=== PATIENT | female | born 1940 | race Caucasian/White ===

== ENCOUNTER → 2018-08-03 | Outpatient (CLI) | payer OTHER | END | disposition home or self-care (01) | LOC: RAH 14:35 | PROVIDERS: ATTEND Family Medicine | DX: Z13.6 Encounter for screening for cardiovascular disorders (principal) | CPT/HCPCS: 75571 ==

== ENCOUNTER → 2018-12-15 | Outpatient (CLI) | payer BC, OTHER | END | disposition home or self-care (01) | LOC: SHCH 09:38 | PROVIDERS: ATTEND Internal Medicine Cardiovascular Disease | DX: I10 Essential (primary) hypertension (principal); R53.1 Weakness | CPT/HCPCS: 93306; 93922 ==

== ENCOUNTER → 2019-01-09 | Outpatient (CLI) | payer BC, OTHER ==
[~2019-01-09] VITALS: Ht 172.7 cm; Wt 73.0 kg
[~2019-01-09] MED LIST: REGADENOSON 0.4 MG/5 ML PF SYG IVP SCH
== END | disposition home or self-care (01) ==
LOC: SHCH 08:29
PROVIDERS: ATTEND Internal Medicine Cardiovascular Disease
DX: R06.00 Dyspnea, unspecified (principal); I10 Essential (primary) hypertension
CPT/HCPCS: 78452; 93017; 96374; A9500 ×2; J2785

== ENCOUNTER → 2019-08-09 | Outpatient (CLI) | payer BC, OTHER ==
[~2019-08-09] VITALS: Ht 172.7 cm; Wt 74.8 kg
[2019-08-09 13:36] VITALS: BP 158/67
[2019-08-09 13:46] LABS: CREATININE 0.9 mg/dL (0.5-1.5); POTASSIUM 3.4 mmol/L (3.5-5.1)
[2019-08-09 13:59] LABS: BASOPHILS % (AUTO) 1.2 % (0.0-5.0); EOSINOPHILS % (AUTO) 3.8 % (0.0-8.0); HEMATOCRIT 39.6 % (36-48); LYMPHOCYTES % (AUTO) 33.1 % (21.0-51.0); MEAN CORPUSCULAR HGB CONC 32.3 g/dL (32.0-36.0); MONOCYTES % (AUTO) 13.6 % (3.0-13.0); NEUTROPHILS % (AUTO) 48.1 % (40.0-77.0); PLATELET COUNT (AUTO) 538 K/uL (130-400); RED BLOOD CELL COUNT(AUTO) 4.26 MIL/uL (4.00-5.50); RED CELL DISTRIBUTION WIDTH 14.6 % (11.0-15.5); WHITE BLOOD COUNT (AUTO) 8.3 K/uL (4.8-10.8)
[2019-08-09 14:14] LABS: INR 0.96 (0.85-1.15); PARTIAL THROMBOPLASTIN TIME 27.3 SEC (26.3-35.5); PROTHROMBIN TIME 10.4 SEC (9.6-11.6)
--- NOTE | 2019-08-14 08:48 | NUR ---
CANCELLED CALLED DR STEVENS OFFICE AND SPOKE TO ANJELICA Cloud NP FOR MD. PER ANJELICA PROCEDURES STARTING TOMORROW WILL BE CANCELLED.
== END | disposition home or self-care (01) ==
LOC: DAH 10:00 → EDSTATUS 11:00
PROVIDERS: ATTEND Orthopaedic Surgery
DX: Z01.818 Encounter for other preprocedural examination (principal); M16.12 Unilateral primary osteoarthritis, left hip; I51.7 Cardiomegaly
CPT/HCPCS: 36415; 80048; 85025; 85610; 85730; 87641; 93005; A6260

== ENCOUNTER 2019-09-20 12:00 | Inpatient (IN) | payer BC, OTHER ==
[~2019-09-20] VITALS: Ht 172.7 cm; Wt 74.2 kg
[2019-09-20 11:57] LABS: BASOPHILS % (AUTO) 1.3 % (0.0-5.0); EOSINOPHILS % (AUTO) 1.9 % (0.0-8.0); HEMATOCRIT 41.3 % (36-48); LYMPHOCYTES % (AUTO) 28.1 % (21.0-51.0); MEAN CORPUSCULAR HEMOGLOBIN 30.8 pg (27.0-33.0); MEAN CORPUSCULAR HGB CONC 32.7 g/dL (32.0-36.0); MEAN CORPUSCULAR VOLUME 94.1 fL (79-99); MONOCYTES % (AUTO) 11.3 % (3.0-13.0); PLATELET COUNT (AUTO) 614 K/uL (130-400); RED BLOOD CELL COUNT(AUTO) 4.39 MIL/uL (4.00-5.50); RED CELL DISTRIBUTION WIDTH 14.6 % (11.0-15.5); WHITE BLOOD COUNT (AUTO) 8.2 K/uL (4.8-10.8)
[2019-09-20 12:14] LABS: CREATININE 0.9 mg/dL (0.5-1.5)
[2019-09-20 12:16] LABS: INR 0.98 (0.85-1.15); PARTIAL THROMBOPLASTIN TIME 27.4 SEC (26.3-35.5); PROTHROMBIN TIME 10.6 SEC (9.6-11.6)
--- NOTE | 2019-09-22 10:20 | NUR ---
ekg abnormal ekg reported to dr. rsus. pending call back.
--- NOTE | 2019-09-22 11:19 | NUR ---
EKG PER DR. RONNIE GONSALVES TO PROCEED WITH PLANNED SURGERY ,NO NEW ORDERS ON ABNORMAL EKG REPORTED
[2019-09-25 09:14] VITALS: BP 144/74
[2019-09-25] MEDS ORDERED: AMLO-257 PO (11:37)
[2019-09-25] MEDS ORDERED: ATOR40TA71 PO (11:37)
[2019-09-25] MEDS ORDERED: LOSA1TAB54 PO (11:37)
[2019-09-25] MEDS ORDERED: ATEN100T PO (11:37)
[2019-09-26] VITALS (21 sets, daily range): BP systolic 102–146; BP diastolic 51–75
[2019-09-26] MEDS ORDERED: LACTATED RINGERS 1000ML 1,000 ML IV ONE (07:47)
[2019-09-26] MEDS ORDERED: MIDAZOLAM HCL 1 MG/ML 2ML VIAL ONE (09:41)
[2019-09-26] MEDS ORDERED: LIDOCAINE PF 2% 5ML ABBOJECT ONE (09:41)
[2019-09-26] MEDS ORDERED: PROPOFOL 10 MG/ML 20ML VIAL IV ONE ×2 (09:41→10:24)
[2019-09-26] MEDS ORDERED: FENTANYL CITRATE PF 50 MCG/1 ML 2ML VIAL ONE (09:42)
[2019-09-26] MEDS ORDERED: TRANEXAMIC ACID 1000MG/10ML ONE (09:52)
[2019-09-26] MEDS: CEFAZOLIN SODIUM 1 GM VIAL ONE ×2 (09:59→10:05)
[2019-09-26] MEDS ORDERED: EPHEDRINE SULFATE 50 MG/ML AMPULE ONE (10:04)
[2019-09-26] MEDS ORDERED: VANCOMYCIN HCL 1 GM VIAL ONE (11:01)
[2019-09-26] MEDS ORDERED: PROPOFOL 1000 MG/100 ML 0 ML IV ONE (11:25)
[2019-09-26] MEDS ORDERED: PROPOFOL 1000 MG/100 ML 100 ML IV ONE (11:26)
[2019-09-26] MEDS ORDERED: PHENYLEPHRINE HCL 10 MG/ML 1ML VIAL IV ONE (11:47)
[2019-09-26] MEDS ORDERED: SODIUM CHLORIDE 0.9% 10 ML VIAL ONE (11:47)
[2019-09-26] MEDS: SODIUM CHLORIDE 0.9% 1000ML 1,000 ML IV SCH (13:26)
[2019-09-26] MEDS ORDERED: ONDANSETRON HCL 4 MG/2 ML VIAL IVP PRN (13:30)
[2019-09-26] MEDS ORDERED: MORPHINE SULFATE 4 MG/1ML SYG IVP PRN (13:30)
[2019-09-26] MEDS: ACETAMINOPHEN EXTRA STRENGTH 500 MG TABLET PO SCH ×2 (13:30→22:33)
[2019-09-26] MEDS: OXYCODONE HCL 5 MG TAB PO PRN (14:53)
[2019-09-26] MEDS: CEFAZOLIN SODIUM 1 GM VIAL IVP SCH (19:09)
--- NOTE | 2019-09-26 19:09 | NUR ---
DC PLAN VISITED WITH PATIENT. PATIENT LIVES WITH DAUGHTER. INDEPENDENT ABLE TO PERFORM ADL'S. NO SERVICES OR DME'S. SAID SHE HAS A WALKER WITH TENNIS BALLS. ASKED IF DR. STEVENS HAD TALKED TO HER REGARDING NEEDING ANY EQUIPMENT OR HOME HEALTH. SHE SAID NO ESPECIALLY SINCE DAUGHTER WILL BE HELPING HER AT HOME. SAID FEELS SAFE TO RETURN HOME. Addendum: 09/26/19 at 1912 by DIEGO RAHMAN RN CM Amended: Links added.
[2019-09-26] MEDS: TRAMADOL HCL 50 MG TABLET PO PRN (22:24)
[2019-09-26] MEDS: ASPIRIN 81 MG EC TAB PO SCH (22:31)
[2019-09-26] MEDS: FAMOTIDINE 20MG TAB 20 MG TAB PO SCH (22:32)
[2019-09-26] MEDS: LOSARTAN/HYDROCHLOROTHIAZIDE 50-12.5MG TABLET PO SCH (22:32)
[2019-09-26] MEDS: AMLODIPINE BESYLATE 5 MG TAB PO SCH (22:32)
[2019-09-27] VITALS (7 sets, daily range): BP systolic 96–143; BP diastolic 50–69
[2019-09-27] MEDS: CEFAZOLIN SODIUM 1 GM VIAL IVP SCH (01:22)
[2019-09-27] MEDS: SODIUM CHLORIDE 0.9% 1000ML 1,000 ML IV SCH ×2 (01:34→09:41)
[2019-09-27 04:55] LABS: HEMATOCRIT 30.1 % (36-48); MEAN CORPUSCULAR HEMOGLOBIN 30.1 pg (27.0-33.0); MEAN CORPUSCULAR HGB CONC 32.9 g/dL (32.0-36.0); MEAN CORPUSCULAR VOLUME 91.5 fL (79-99); RED BLOOD CELL COUNT(AUTO) 3.29 MIL/uL (4.00-5.50); RED CELL DISTRIBUTION WIDTH 14.3 % (11.0-15.5); WHITE BLOOD COUNT (AUTO) 9.3 K/uL (4.8-10.8)
[2019-09-27 05:10] LABS: CREATININE 0.9 mg/dL (0.5-1.5)
[2019-09-27] MEDS ORDERED: POTASSIUM CHLORIDE 10% ELIXIR 20 MEQ/15 ML UDCUP PO PRN (06:00)
[2019-09-27] MEDS: ACETAMINOPHEN EXTRA STRENGTH 500 MG TABLET PO SCH ×3 (06:41→20:21)
[2019-09-27] MEDS: ASPIRIN 81 MG EC TAB PO SCH ×2 (08:39→20:13)
[2019-09-27] MEDS: POLYETHYLENE GLYCOL 3350 17 GM POWD.PACK PO SCH (08:39)
[2019-09-27] MEDS: ATENOLOL 50 MG TABLET PO SCH (08:39)
[2019-09-27] MEDS: FAMOTIDINE 20MG TAB 20 MG TAB PO SCH ×2 (08:39→20:13)
[2019-09-27] MEDS: POTASSIUM CHLORIDE 20 MEQ ERTAB PO PRN ×2 (08:41→20:15)
[2019-09-27] MEDS: OXYCODONE HCL 5 MG TAB PO PRN ×2 (08:41→21:21)
[2019-09-27] MEDS: POTASSIUM CHLORIDE 20MEQ/100ML 100 ML IV PRN (13:07)
[2019-09-27] MEDS: LIDOCAINE HCL-MPF 1% 2ML VIAL IV PRN (13:07)
[2019-09-27] MEDS: LOSARTAN/HYDROCHLOROTHIAZIDE 50-12.5MG TABLET PO SCH (20:13)
[2019-09-27] MEDS: AMLODIPINE BESYLATE 5 MG TAB PO SCH (20:13)
[2019-09-28 03:32] VITALS: BP 133/66
[2019-09-28] MEDS: TRAMADOL HCL 50 MG TABLET PO PRN (04:02)
[2019-09-28] MEDS: POTASSIUM CHLORIDE 20 MEQ ERTAB PO PRN ×3 (04:08→12:28)
[2019-09-28] MEDS: ACETAMINOPHEN EXTRA STRENGTH 500 MG TABLET PO SCH ×2 (04:26→14:10)
[2019-09-28 08:09] VITALS: BP 120/70
[2019-09-28] MEDS: ATENOLOL 50 MG TABLET PO SCH (09:28)
[2019-09-28] MEDS: FAMOTIDINE 20MG TAB 20 MG TAB PO SCH (09:28)
[2019-09-28] MEDS: ASPIRIN 81 MG EC TAB PO SCH (09:28)
[2019-09-28] MEDS: POLYETHYLENE GLYCOL 3350 17 GM POWD.PACK PO SCH (09:28)
[2019-09-28 11:21] VITALS: BP 93/48
[2019-09-28 11:30] LABS: HEMATOCRIT 31.6 % (36-48)
[2019-09-28] MEDS: POTASSIUM CHLORIDE 20MEQ/100ML 100 ML IV PRN (14:22)
[2019-09-28] MEDS: LIDOCAINE HCL-MPF 1% 2ML VIAL IV PRN (14:22)
[2019-09-28 14:41] VITALS: BP 140/65
[2019-09-28 16:39] VITALS: BP 115/57
[2019-09-29] MEDS ORDERED: BISACODYL 10 MG SUPP.RECT RC PRN (13:30)
== END 2019-09-28 17:10 | disposition home or self-care (01) | DRG 470 ==
LOC: EDSTATUS 12:00 → DAHIP 09-26 07:00 → 3CH 09-26 15:20
PROVIDERS: ADMIT Orthopaedic Surgery; ATTEND Orthopaedic Surgery
PROC: 0SRB039 Replacement of Left Hip Joint with Ceramic Synthetic Substitute, Cemented, Open Approach (ICD-10-PCS; principal; 2019-09-26 09:50)
DX: M16.12 Unilateral primary osteoarthritis, left hip (principal); I10 Essential (primary) hypertension; E78.00 Pure hypercholesterolemia, unspecified; Z98.49 Cataract extraction status, unspecified eye; R26.89 Other abnormalities of gait and mobility; M41.87 Other forms of scoliosis, lumbosacral region
CPT/HCPCS: 36415; 73502; 80048; 84132; 85014; 85018; 85025; 85027; 85610; 85730; 86850; 86900; 86901; 87641; 93005; 97039; A4344; A4606; G0378; J0690; J2001; J2250; J2270; J2370; J2704; J3010; J3370; J3480; J3490; J7030; J7120

== ENCOUNTER 2022-08-12 07:08 | Emergency (ER) | payer BC, OTHER ==
[~2022-08-12] VITALS: Ht 170.2 cm; Wt 74.4 kg
[~2022-08-12 07:08] MED LIST changes: +AMLO-257 PO; +ATEN100T PO; +ATOR40TA71 PO; +LOSA1TAB54 PO; -REGADENOSON 0.4 MG/5 ML PF SYG IVP SCH
[2022-08-12] MEDS ORDERED: LACTATED RINGERS IV ONE (07:30)
[2022-08-12] MEDS ORDERED: MECLIZINE HCL 25 MG TABLET PO ONE (07:30)
[2022-08-12 07:49] LABS: HEMATOCRIT 39.8 % (36-48); MEAN CORPUSCULAR HEMOGLOBIN 29.8 pg (27.0-33.0); MEAN CORPUSCULAR HGB CONC 32.7 g/dL (32.0-36.0); MEAN CORPUSCULAR VOLUME 91.3 fL (79-99); PLATELET COUNT (AUTO) 306 K/uL (130-400); RED BLOOD CELL COUNT(AUTO) 4.36 MIL/uL (4.00-5.50); RED CELL DISTRIBUTION WIDTH 15.1 % (11.0-15.5); WHITE BLOOD COUNT (AUTO) 5.9 K/uL (4.8-10.8)
[2022-08-12 08:03] LABS: CREATININE 0.9 mg/dL (0.5-1.5); POTASSIUM 4.1 mmol/L (3.5-5.1)
[2022-08-12 08:05] LABS: ALBUMIN 3.3 g/dL (3.5-5.0); TOTAL PROTEIN, SERUM 6.8 g/dL (6.0-8.3)
[2022-08-12 08:28] VITALS: BP 169/69
[2022-08-12 08:58] LABS: APPEARANCE,URINE CLEAR (CLEAR); BILIRUBIN,URINE NEGATIVE (NEGATIVE); COLOR,URINE COLORLESS (YELLOW); GLUCOSE, URINE (UA) NEGATIVE (NEGATIVE); KETONES,URINE NEGATIVE (NEGATIVE); LEUKOCYTE ESTERASE ,URINE 75 Leu/uL (NEGATIVE); NITRATE,URINE NEGATIVE (NEGATIVE); OCCULT BLOOD,URINE NEGATIVE (NEGATIVE); PROTEIN,URINE NEGATIVE (NEGATIVE); UROBILINOGEN,URINE 0.2 mg/dL (0.2-1.0)
[2022-08-12] MEDS ORDERED: MECL-160 PO (09:00)
[2022-08-12 09:38] LABS: BAND NEUTROPHILS % (MANUAL) 6 % (0-2); EOSINOPHILS % (MANUAL) 2 % (1-6); LYMPHOCYTES % (MANUAL) 27 % (22-44); MAN.DIFF COMMENT-IMPRESSION MANUAL DIFFERENTIAL; MONOCYTES % (MANUAL) 10 % (2-9); PLATELET MORPHOLOGY COMMENT ADEQUATE; SEGMENTED NEUTROPHILS % 55 % (40-70)
[2022-08-12 10:01] LABS: MUCUS,URINE RARE LPF (None Seen); SQUAMOUS EPITHELIAL CELL,UR RARE /HPF (0-2); TRANSITIONAL EPI CELLS,URINE RARE /HPF (None Seen)
== END 2022-08-12 09:15 | disposition home or self-care (01) ==
LOC: EDH 07:08
DX: R42 Dizziness and giddiness (principal); I10 Essential (primary) hypertension; E78.00 Pure hypercholesterolemia, unspecified; Z90.49 Acquired absence of other specified parts of digestive tract
CPT/HCPCS: 36415; 80053; 81001; 85025; 87088; 93005

== ENCOUNTER 2022-08-16 08:32 | Emergency (ER) | payer OTHER ==
[~2022-08-16] VITALS: Ht 172.7 cm; Wt 74.8 kg
[~2022-08-16 08:32] MED LIST changes: +MECL-160 PO
[2022-08-16 10:01] LABS: BASOPHILS % (AUTO) 1.2 % (0.0-5.0); EOSINOPHILS % (AUTO) 1.2 % (0.0-8.0); HEMATOCRIT 43.1 % (36-48); LYMPHOCYTES % (AUTO) 18.4 % (21.0-51.0); MEAN CORPUSCULAR HEMOGLOBIN 29.7 pg (27.0-33.0); MEAN CORPUSCULAR HGB CONC 32.5 g/dL (32.0-36.0); MEAN CORPUSCULAR VOLUME 91.5 fL (79-99); MONOCYTES % (AUTO) 9.6 % (3.0-13.0); NEUTROPHILS % (AUTO) 69.2 % (40.0-77.0); PLATELET COUNT (AUTO) 457 K/uL (130-400); RED BLOOD CELL COUNT(AUTO) 4.71 MIL/uL (4.00-5.50); WHITE BLOOD COUNT (AUTO) 8.3 K/uL (4.8-10.8)
[2022-08-16 11:05] LABS: ALBUMIN 3.5 g/dL (3.5-5.0); CREATININE 0.9 mg/dL (0.5-1.5); POTASSIUM 3.6 mmol/L (3.5-5.1); TOTAL PROTEIN, SERUM 7.2 g/dL (6.0-8.3)
[2022-08-16 11:08] LABS: APPEARANCE,URINE CLEAR (CLEAR); BILIRUBIN,URINE NEGATIVE (NEGATIVE); COLOR,URINE COLORLESS (YELLOW); GLUCOSE, URINE (UA) NEGATIVE (NEGATIVE); KETONES,URINE NEGATIVE (NEGATIVE); LEUKOCYTE ESTERASE ,URINE NEGATIVE Leu/uL (NEGATIVE); NITRATE,URINE NEGATIVE (NEGATIVE); OCCULT BLOOD,URINE NEGATIVE (NEGATIVE); PROTEIN,URINE NEGATIVE (NEGATIVE); UROBILINOGEN,URINE 0.2 mg/dL (0.2-1.0)
[2022-08-16] MEDS ORDERED: IOHEXOL 350 MG/ML 100ML INFUS..BTL IV ONE (11:23)
[2022-08-16 13:33] VITALS: BP 154/71
== END 2022-08-16 13:56 | disposition home or self-care (01) ==
LOC: EDH 08:32
DX: R42 Dizziness and giddiness (principal); I10 Essential (primary) hypertension; I67.1 Cerebral aneurysm, nonruptured; E78.00 Pure hypercholesterolemia, unspecified; Z90.49 Acquired absence of other specified parts of digestive tract; Z79.899 Other long term (current) drug therapy; Z98.890 Other specified postprocedural states
CPT/HCPCS: 70496; 99284; 80053; 85025; 81003; 36415; 93005; 70498; 70450; Q9967